=== PATIENT | female | born 1945 | race Caucasian/White ===

== ENCOUNTER 2019-12-09 17:18 | Inpatient (IN) | payer OTHER ==
[~2019-12-09] VITALS: Ht 172.7 cm; Wt 110.0 kg
[2019-12-09 18:05] LABS: Basophils # (auto) 0.1 10 ^3/uL (0-0.2); Basophils % (auto) 0.8 % (0.0-2.0); Eosinophils # (auto) 0.1 10 ^3/uL (0-0.8); Eosinophils % (auto) 1.4 % (0.0-7.0); Hematocrit 40.4 % (36.0-46.0); Hemoglobin 13.3 g/dL (12.2-16.2); Lymphocytes % (auto) 28.8 % (10.0-50.0); Mean Corpuscular Hemoglobin 28.9 pg (28.0-32.0); Mean Corpuscular Hgb Conc. 32.8 g/dL (32.0-36.0); Mean Corpuscular Volume 88.2 fL (80.0-100.0); Monocytes # (auto) 0.7 10 ^3/uL (0-1.3); Monocytes % (auto) 7.2 % (0.0-12.0); Neutrophils # (auto) 6.3 10 ^3/uL (1.6-8.6); Neutrophils % (auto) 61.8 % (37.0-80.0); Platelet Count (auto) 350 10^3/uL (140-450); Red Blood Cells 4.58 10^6/uL (4.0-5.20); Red Cell Distribution Width 14.3 % (11.8-14.3); White Blood Cell 10.2 10^3/uL (4.4-10.8)
[2019-12-09 18:29] LABS: Albumin 3.6 g/dL (3.4-5.0); BUN/Creatinine Ratio 16.8; Calcium 8.5 mg/dL (8.5-10.1); Potassium 3.9 mmol/L (3.5-5.1)
[2019-12-09 18:32] LABS: Bilirubin, Total 0.4 mg/dL (0.2-1.0); Total Protein 7.7 g/dL (6.4-8.2)
[2019-12-09 19:49] LABS: INR 0.92 (0.9-1.15); Partial Thromboplastin Time 26.6 sec (23.64-32.05)
[2019-12-09 22:00] LABS: Amylase 41 U/L (25-115); Lipase 126 U/L (73-393)
[2019-12-10] MEDS ORDERED: DEXTROSE (50%) 50ML SYRG IV PRN (03:30)
[2019-12-10] MEDS ORDERED: HYDROcodone-ACET 5/325MG TAB PO PRN (03:30)
[2019-12-10] MEDS ORDERED: ACETAMINOPHEN 325 MG TAB PO PRN (03:30)
[2019-12-10] MEDS ORDERED: MORPHINE SULF INJ 2 MG/ML SYRINGE 1ML IV PRN (03:30)
[2019-12-10] MEDS ORDERED: ONDANSETRON HCL 4 MG/2 ML VIAL IV PRN (03:30)
[2019-12-10] MEDS ORDERED: DOCUSATE SOD 100 MG CAP PO PRN (03:30)
[2019-12-10] MEDS: SODIUM CHLORIDE 0.9% 1,000 ML IV SCH ×2 (03:44→20:10)
[2019-12-10 06:44] LABS: Basophils # (auto) 0 10 ^3/uL (0-0.2); Basophils % (auto) 0.5 % (0.0-2.0); Eosinophils # (auto) 0.1 10 ^3/uL (0-0.8); Eosinophils % (auto) 1.6 % (0.0-7.0); Hematocrit 32.8 % (36.0-46.0); Lymphocytes # (auto) 2.4 10 ^3/uL (0.4-5.4); Mean Corpuscular Hemoglobin 29.5 pg (28.0-32.0); Mean Corpuscular Hgb Conc. 33.4 g/dL (32.0-36.0); Mean Corpuscular Volume 88.3 fL (80.0-100.0); Monocytes # (auto) 0.7 10 ^3/uL (0-1.3); Monocytes % (auto) 8.5 % (0.0-12.0); Neutrophils # (auto) 4.9 10 ^3/uL (1.6-8.6); Neutrophils % (auto) 60.4 % (37.0-80.0); Platelet Count (auto) 275 10^3/uL (140-450); Red Blood Cells 3.71 10^6/uL (4.0-5.20); Red Cell Distribution Width 14.1 % (11.8-14.3); White Blood Cell 8.1 10^3/uL (4.4-10.8)
[2019-12-10] MEDS: ACCU-CHEK COMFORT CURVE STRIP VI SCH ×4 (06:44→23:33)
[2019-12-10] MEDS: InsuLIN REG 1unit/0.01ml Soln (100units/ml) SC SCH ×4 (06:45→23:33)
[2019-12-10 07:07] LABS: Calcium 7.8 mg/dL (8.5-10.1); Potassium 3.7 mmol/L (3.5-5.1)
[2019-12-10 07:11] LABS: BUN/Creatinine Ratio 16.9
[2019-12-10 08:16] LABS: Urine Bacteria NONE SEEN /hpf (None Seen); Urine Blood 1+ /uL (Negative); Urine Specific Gravity 1.016 (1.001-1.035); Urine WBC 14 /hpf (0 - 5)
[2019-12-10 09:37] LABS: Hematocrit 33.5 % (36.0-46.0); Hemoglobin 11.2 g/dL (12.2-16.2)
[2019-12-10] MEDS ORDERED: ASPI-543 PO (10:50)
[2019-12-10] MEDS ORDERED: METF-370 PO (10:50)
[2019-12-10] MEDS ORDERED: SIMV10TA84 PO (10:50)
[2019-12-10] MEDS ORDERED: LISI-646 PO (10:50)
--- NOTE | 2019-12-10 16:00 | NUR ---
patient arrived to unit alert and oriented x 4. No s/s of distress noted, no complaints from patients.
[2019-12-10 17:36] VITALS: BP 144/81
--- NOTE | 2019-12-10 19:35 | NUR ---
Opening shift note Assumed care of patient who is A&Ox4 sitting up in bed with no s/s of distress or c/o pain. Discussed the POC with the patient who verbalized understanding. IV patent and intact running NS at 60. Patient stated that she had just gone to the bathroom and that her sanitary pad had no blood on it nor any in the toilet after voiding. Bed locked in lowest position with 2 side rails up, call light within reach. Will continue to monitor Q1hr and PRN.
[2019-12-10 22:00] VITALS: BP 134/71
[2019-12-11 05:00] VITALS: BP 122/59
[2019-12-11] MEDS: InsuLIN REG 1unit/0.01ml Soln (100units/ml) SC SCH ×3 (05:19→17:50)
[2019-12-11] MEDS: ACCU-CHEK COMFORT CURVE STRIP VI SCH ×3 (05:19→17:50)
[2019-12-11 06:57] LABS: Basophils # (auto) 0 10 ^3/uL (0-0.2); Basophils % (auto) 0.5 % (0.0-2.0); Eosinophils # (auto) 0.1 10 ^3/uL (0-0.8); Hematocrit 32.5 % (36.0-46.0); Hemoglobin 10.6 g/dL (12.2-16.2); Lymphocytes # (auto) 1.9 10 ^3/uL (0.4-5.4); Lymphocytes % (auto) 27.8 % (10.0-50.0); Mean Corpuscular Hemoglobin 29.7 pg (28.0-32.0); Mean Corpuscular Hgb Conc. 32.8 g/dL (32.0-36.0); Mean Corpuscular Volume 90.5 fL (80.0-100.0); Monocytes # (auto) 0.6 10 ^3/uL (0-1.3); Monocytes % (auto) 8.8 % (0.0-12.0); Neutrophils # (auto) 4.1 10 ^3/uL (1.6-8.6); Neutrophils % (auto) 60.9 % (37.0-80.0); Nucleated Red Blood Cells % 0.1 %; Platelet Count (auto) 257 10^3/uL (140-450); Red Blood Cells 3.58 10^6/uL (4.0-5.20); Red Cell Distribution Width 14.4 % (11.8-14.3); White Blood Cell 6.7 10^3/uL (4.4-10.8)
[2019-12-11 07:14] LABS: INR 1.02 (0.9-1.15); Partial Thromboplastin Time 25.6 sec (23.64-32.05)
[2019-12-11 07:19] LABS: Potassium 3.8 mmol/L (3.5-5.1)
[2019-12-11 07:25] LABS: BUN/Creatinine Ratio 10.3
--- NOTE | 2019-12-11 07:32 | NUR ---
Closing shift note Patient resting with eyes closed, respirations even and non-labored with no s/s of distress. Endorsed care to day shift RNDayanara.
[2019-12-11 09:00] VITALS: BP 149/51
--- NOTE | 2019-12-11 11:30 | NUR ---
PAGED PAGED DR MADRID. PATIENT HAD A BLOODY BM AND CONTINUED TO BLEED BRIGHT RED BLOOD AFTER. AWAITING CALL BACK
[2019-12-11] MEDS ORDERED: GOLYTELY 4L KIT PO ONE (12:00)
[2019-12-11] MEDS: SODIUM CHLORIDE 0.9% 1,000 ML IV SCH (12:25)
--- NOTE | 2019-12-11 12:30 | NUR ---
AT BEDSIDE DR CORMIER AT BEDSIDE CONSULTING WITH PATIENT.
[2019-12-11 13:00] VITALS: BP 142/72
[2019-12-11] MEDS ORDERED: GADOTERIDOL 279.3mg/mL 20ml Vial IV ONE (15:14)
--- NOTE | 2019-12-11 15:18 | NUR ---
CONSENTS CONSENTS SIGNED BY PATIENT AND PLACED IN THE CHART
--- NOTE | 2019-12-11 15:45 | NUR ---
AT BEDSIDE DR VANG IN TO DISCUSS POC WITH PATIENT.
[2019-12-11 17:00] VITALS: BP 164/79
[2019-12-11 17:56] LABS: Hematocrit 34.2 % (36.0-46.0); Hemoglobin 11.5 g/dL (12.2-16.2)
[2019-12-11 22:00] VITALS: BP 151/67
[2019-12-12] MEDS: ACCU-CHEK COMFORT CURVE STRIP VI SCH ×4 (00:48→17:18)
[2019-12-12 05:00] VITALS: BP 126/60
[2019-12-12 05:27] LABS: Basophils # (auto) 0 10 ^3/uL (0-0.2); Basophils % (auto) 0.5 % (0.0-2.0); Eosinophils # (auto) 0.2 10 ^3/uL (0-0.8); Eosinophils % (auto) 2.4 % (0.0-7.0); Hematocrit 31.2 % (36.0-46.0); Hemoglobin 10.3 g/dL (12.2-16.2); Lymphocytes % (auto) 27.7 % (10.0-50.0); Mean Corpuscular Hemoglobin 29.1 pg (28.0-32.0); Mean Corpuscular Hgb Conc. 32.9 g/dL (32.0-36.0); Mean Corpuscular Volume 88.5 fL (80.0-100.0); Monocytes # (auto) 0.6 10 ^3/uL (0-1.3); Neutrophils # (auto) 4.3 10 ^3/uL (1.6-8.6); Neutrophils % (auto) 60.4 % (37.0-80.0); Platelet Count (auto) 281 10^3/uL (140-450); Red Blood Cells 3.53 10^6/uL (4.0-5.20); Red Cell Distribution Width 14.4 % (11.8-14.3); White Blood Cell 7.1 10^3/uL (4.4-10.8)
[2019-12-12] MEDS: SODIUM CHLORIDE 0.9% 1,000 ML IV SCH ×2 (05:30→22:10)
[2019-12-12 05:42] LABS: INR 1.01 (0.9-1.15)
[2019-12-12] MEDS: InsuLIN REG 1unit/0.01ml Soln (100units/ml) SC SCH ×4 (06:00→17:34)
[2019-12-12] MEDS ORDERED: MAGNESIUM CITRATE SOLUTION 300 ML BTL PO ONE (06:00)
--- NOTE | 2019-12-12 07:15 | NUR ---
Opening Shift Note RECEIVED REPORT FROM NOC RN. Assumed care of patient, awake and alert. No S/S of distress/SOB or pain. BED IN LOWEST, LOCKED POSITION WITH SIDE RAILS UP x2 AND CALL LIGHT WITHIN REACH. Instructed on POC,to keep NPO after a lear liquid diet after breakfast for expected procedure,call light within reach patient reminded instructed to call for assistance.patient verbalized understanding.will continue to monitor for changes Q1hr and PRN.
[2019-12-12] MEDS ORDERED: SODIUM CHLORIDE LOCK 10 ML ONE (08:21)
[2019-12-12] MEDS ORDERED: diphenhdrAMINE HCL 50 MG/1 ML VL ONE (08:21)
[2019-12-12 09:00] VITALS: BP 150/66
--- NOTE | 2019-12-12 11:09 | NUR ---
RESTING,AWAITING FOR COLONOSCOPY PROCEDURE,INSTRUCTED TO KEEP NPO,VERBALIZED UNDERSTANDING
--- NOTE | 2019-12-12 12:50 | NUR ---
To OPS holding area for colonoscopy report given to Emerald whitt
[2019-12-12 13:00] VITALS: BP 146/72
[2019-12-12] MEDS: fentaNYL CITRATE 100 MCG/2 ML VL ONE ×2 (13:22→13:25)
[2019-12-12] MEDS: MIDAZOLAM HCL 5 MG/ML-1ML VIAL ONE ×2 (13:22→13:25)
--- NOTE | 2019-12-12 14:00 | NUR ---
Report received from Anthony BOND ANALYST re patient status and plan of care
--- NOTE | 2019-12-12 14:15 | NUR ---
RECEIVED PATIENT FROM PACU VIA BED S/P COLONOSCOPY,AWAKE,ALERT,ORIENTED NO DISTRESS NO DISCOMFORT VITAL SIGNS TAKEN BP155/69,HR64,RR22,TEMP.97.6 ON ROOM AIR SATURATING 93%
[2019-12-12] MEDS: IRON SUCROSE COMPLEX 200 MG in SODIUM CHL 0.9% 100 ML IV SCH (15:56)
[2019-12-12 16:46] VITALS: BP 124/43
--- NOTE | 2019-12-12 18:46 | NUR ---
RESTING QUIETLY NO DISTRESS NO DISCOMFORT,STATUS UNCHANGED
--- NOTE | 2019-12-12 19:30 | NUR ---
Opening Shift Note Assumed care of patient. Patient is awake and alert. No S/S of distress/SOB or pain. Instructed on POC and to call for assist PRN, will continue to monitor for changes Q1hr and PRN. Bed locked in lowest position and bed rails up x2. Call light within reach.
[2019-12-12 22:00] VITALS: BP 134/56
[2019-12-13] MEDS: ACCU-CHEK COMFORT CURVE STRIP VI SCH ×3 (00:52→12:17)
[2019-12-13] MEDS: InsuLIN REG 1unit/0.01ml Soln (100units/ml) SC SCH ×3 (06:00→12:00)
--- NOTE | 2019-12-13 07:10 | NUR ---
Opening Shift Note RECEIVED REPORT FROM NOC RN. Assumed care of patient, awake and alert. No S/S of distress/SOB or pain. BED IN LOWEST, LOCKED POSITION WITH SIDE RAILS UP x2 AND CALL LIGHT WITHIN REACH. Instructed on POC,call light within reach patient reminded instructed to call for assistance.patient verbalized understanding.will continue to monitor for changes Q1hr and PRN.
[2019-12-13 09:00] VITALS: BP 139/59
[2019-12-13] MEDS ORDERED: PHENSUP38 PR (09:44)
--- NOTE | 2019-12-13 09:45 | NUR ---
RECEIVED ORDER FOR DISCHARGE FROM DR. VANG
[2019-12-13 11:22] VITALS: BP 139/59
[2019-12-13] MEDS: IRON SUCROSE COMPLEX 200 MG in SODIUM CHL 0.9% 100 ML IV SCH (13:39)
--- NOTE | 2019-12-13 14:05 | NUR ---
IV SITE TO RIGHT FOREARM LEAKING,VENOFER STOP,PATIENT REFUSED TO HAVE ANOTHER IV SITE TO BE RESTARTED TO CONTINUE VENOFER
--- NOTE | 2019-12-13 14:40 | NUR ---
Discharge instructions given as ordered. Encourage to follow up with PMD,GI AND OB-GYNE as instructed. All questions and concerns addressed. Patient verbalized understanding. Medication reconciliation form completed and copy given to patient. IV removed with catheter intact, pressure dressing applied, Telemetry unit returned to ICU. Patient taken to vehicle via wheelchair with all personal belongings, accompanied by staff and family member awaiting at main lobby. No distress noted at time of departure.
== END 2019-12-13 14:40 | disposition home or self-care (01) | DRG 394 ==
LOC: ER 17:18 → TELE 17:19 → TELE-WESTW 12-10 15:58
PROVIDERS: ADMIT Hospitalist; ATTEND Hospitalist
PROC: 0DBP8ZX Excision of Rectum, Via Natural or Artificial Opening Endoscopic, Diagnostic (ICD-10-PCS; principal; 2019-12-12 13:13)
DX: K64.8 Other hemorrhoids (principal); D62 Acute posthemorrhagic anemia; N93.9 Abnormal uterine and vaginal bleeding, unspecified; N28.1 Cyst of kidney, acquired; I10 Essential (primary) hypertension; E11.9 Type 2 diabetes mellitus without complications; C55 Malignant neoplasm of uterus, part unspecified; N85.00 Endometrial hyperplasia, unspecified; K64.5 Perianal venous thrombosis; E78.5 Hyperlipidemia, unspecified; K62.1 Rectal polyp
CPT/HCPCS: 36415; 45380; 71045; 73723; 74176; 76856; 80048; 80053; 80061; 81001; 82150; 82962; 83036; 83605; 83690; 85014; 85018; 85025; 85610; 85730; 86304; 86850; 86900; 86901; 96360; G0378; J1756; J1815; J2250